=== PATIENT | female | born 1985 | race Hispanic/Latino ===

== ENCOUNTER 2018-08-04 18:04 | Emergency (ER) | payer OTHER ==
[2018-08-04] MEDS: Albuterol-Ipratrop 3 mg / 0.5 (3 ml) UD INH STA (19:03)
--- NOTE | 2018-08-04 20:00 | ED PDOC ---
HPI: CCC, URI, Sore Throat Time Seen by Provider: 08/04/18 18:19 Chief Complaint (Nursing): Shortness Of Breath Chief Complaint (Provider): Shortness Of Breath History Per: Patient History/Exam Limitations: no limitations Onset/Duration Of Symptoms: Days (x 4) Current Symptoms Are (Timing): Still Present Sick Contacts (Context): Family Member(s) (mother in law) Associated Symptoms: Cough, Sinus Drainage Additional Complaint(s): 33 year old female with a history of asthma presents to the ED for evaluation of non productive cough associated with chest tightness for the last 4 days. Patient is 7 days and currently breast feeding. Symptoms are also associated with a burning sensation in her throat when she coughs, but not a sore throat, and a mild runny nose. Her mother in law was recently hospitalized for influenza and pneumonia. Patient reports she visited [facility] this morning where she tested negative for influenza and was discharged with prednisone and albuterol. She developed a fever today, prompting visit. History taking was interrupted frequently by coughing. Denies other complaints. PMD: [place] Past Medical History Reviewed: Historical Data, Nursing Documentation, Vital Signs Vital Signs: Last Vital Signs Temp 99 F 08/04/18 18:08 Pulse 93 H 08/04/18 18:08 Resp 20 08/04/18 18:08 BP 119/62 08/04/18 18:08 Pulse Ox 98 08/04/18 18:08 - Medical History PMH: Asthma Denies: Chronic Kidney Disease - Family History Family History: States: No Known Family Hx - Social History Current smoker - smoking cessation education provided: No - Home Medications Home Medications: Ambulatory Orders Medication Instructions Recorded Oseltamivir Cap [Tamiflu] 75 mg PO BID #10 cap 08/04/18 Prednisone 50 mg PO DAILY #4 tablet 08/04/18 - Allergies Allergies/Adverse Reactions: Allergies Allergy/AdvReac Type Severity Reaction Status Date / Time No Known Allergies Allergy Verified 08/04/18 18:11 Review of Systems ROS Statement: Except As Marked, All Systems Reviewed And Found Negative Constitutional: Positive for: Fever. Negative for: Chills ENT: Positive for: Nose Discharge (mild), Throat Pain (burning when coughs) Cardiovascular: Positive for: Chest Pain (tightness) Respiratory: Positive for: Cough Physical Exam - Reviewed Nursing Documentation Reviewed: Yes Vital Signs Reviewed: Yes - Physical Exam Head Exam: Positive for: ATRAUMATIC, NORMAL INSPECTION, NORMOCEPHALIC Skin: Positive for: Normal Color, Warm, Dry. Negative for: Rash Eye Exam: Positive for: EOMI, Normal appearance, PERRL ENT: Negative for: Pharyngeal Erythema, Tonsillar Exudate Neck: Positive for: Painless ROM, Supple Cardiovascular/Chest: Positive for: Regular Rate, Rhythm. Negative for: Murmur Respiratory: Positive for: Wheezing (scattered and expiratory wheezing), Respiratory Distress (mild). Negative for: Accessory Muscle Use, Rales, Rhonchi Gastrointestinal/Abdominal: Positive for: Soft. Negative for: Tenderness Back: Positive for: Normal Inspection. Negative for: Muscle Spasm Extremity: Positive for: Normal ROM. Negative for: Deformity Lymphatic: Negative for: Adenopathy Neurological/Psych: Positive for: Awake, Alert, Normal Tone. Negative for: Motor/Sensory Deficits - ECG O2 Sat by Pulse Oximetry: 98 (RA) Pulse Ox Interpretation: Normal Medical Decision Making Medical Decision Makin:54 Impression: influenza like illness and asthma exacerbation Differential diagnoses include but are not limited to: bronchitis and pneumonia Initial Plan: --Tamiflu 75 mg PO --Solu-medrol 125 mg IVP --Albuterol 6 ml INH --Peak flow pre/post Scribe Attestation: Documented by Sharon Herrera, acting as a scribe for Rupal Power MD. Provider Scribe Attestation: All medical record entries made by the Scribe were at my direction and personally dictated by me. I have reviewed the chart and agree that the record accurately reflects my personal performance of the history, physical exam, medical decision making, and the department course for this patient. I have also personally directed, reviewed, and agree with the discharge instructions and disposition. Disposition - Clinical Impression Clinical Impression: Influenza-like illness, Asthma exacerbation Counseled Patient/Family Regarding: Studies Performed, Diagnosis, Need For Followup, Rx Given - Disposition Referrals: Teja William [Outside] - 08/05/18 Disposition: Routine/Home Disposition Time: 20:30 Condition: IMPROVED Additional Instructions: FOLLOWUP WITH YOUR DOCTOR OR Naow ADELA IN 24-48 HOURS FOR REEVALUATION Prescriptions: Oseltamivir Cap [Tamiflu] 75 mg PO BID #10 cap Prednisone 50 mg PO DAILY #4 tablet Instructions: Asthma, Adult (DC), Flu, Adult (DC) Forms: [facility] ([place])
[2018-08-04 21:01] VITALS: BP 99/56; PULSE 78; RESP 16; TEMP 99.5
--- NOTE | 2018-08-05 08:34 | RAD ---
Date of service: 08/04/2018 HISTORY: cough fever COMPARISON: No prior. TECHNIQUE: Chest PA and lateral FINDINGS: LUNGS: No active pulmonary disease. Granulomatous changes PLEURA: No significant pleural effusion identified. No pneumothorax apparent. CARDIOVASCULAR: No aortic atherosclerotic calcification present. Normal cardiac size. No pulmonary vascular congestion. OSSEOUS STRUCTURES: Scoliosis. VISUALIZED UPPER ABDOMEN: Normal. OTHER FINDINGS: None. IMPRESSION: No consolidative infiltrate suggested. Bronchovascular markings within normal limits. Granulomatous changes probable
[2018-08-05 15:30] VITALS: O2SAT 98
== END 2018-08-04 21:01 | disposition home or self-care (01) ==
LOC: H.ER 18:04
DX: J11.1 Influenza due to unidentified influenza virus with other respiratory manifestations (principal); J45.901 Unspecified asthma with (acute) exacerbation
CPT/HCPCS: 71046; 81025; 94640; 96372; 99284; J2930